=== PATIENT | female | born 1970 | race Caucasian/White ===

== ENCOUNTER 2022-10-06 16:33 | Emergency (ER) | payer OTHER ==
[2022-10-06 16:51] VITALS: BP 138/82; PULSE 85; RESP 18; TEMP 98; BMI 27.7
[2022-10-06] MEDS ORDERED: ACETAMINOPHEN 500 MG TABLET (FP) PO ONE (17:43)
[2022-10-06] MEDS ORDERED: ACETAMINOPHEN 325 MG TABLET (FP) ONE (17:56)
== END 2022-10-06 20:08 | disposition home or self-care (01) ==
LOC: JER 16:33
DX: M54.2 Cervicalgia (principal); R51.9 Headache, unspecified; M25.511 Pain in right shoulder; V49.40XA Driver injured in collision with unspecified motor vehicles in traffic accident, initial encounter
CPT/HCPCS: 70450-TC; 72125-TC; 73030-TC-RT-FY; 99285-25

== ENCOUNTER 2023-02-04 11:39 | Emergency (ER) | payer SELFPAY ==
[2023-02-04 11:49] VITALS: BP 141/85; PULSE 80; RESP 17; TEMP 97.9; BMI 31.4
== END 2023-02-04 12:11 | disposition home or self-care (01) ==
LOC: JERFT 11:39
DX: R09.89 Other specified symptoms and signs involving the circulatory and respiratory systems (principal); R05.9 Cough, unspecified; J02.9 Acute pharyngitis, unspecified; J06.9 Acute upper respiratory infection, unspecified
CPT/HCPCS: 99282-25